=== PATIENT | male | born 1950 | race Caucasian/White ===

== ENCOUNTER 2020-07-23 08:59 | Emergency (ER) | payer MEDICARE, OTHER ==
[2020-07-23] MEDS ORDERED: Lactated Ringers 1,000 ML IV SCH (09:45)
[2020-07-23] MEDS ORDERED: Morphine 4 MG/ML Syringe IVPUSH ONE (09:45)
--- NOTE | 2020-07-23 09:51 | EDM.PDOC ---
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 The patient states that off and on for the past 5 years this right-sided inguinal hernia has come out and in. He states that he is normally able to reduce it. He states that starting yesterday he noticed that it was starting to get painful and so he tried to reduce it but it did not seem to work. He denies any nausea, vomiting, fever or chills. He denies any melena, diarrhea. He states that he does have some constipation which is not normal for him. He has had a prior appendectomy. He states that he did have a colonoscopy and EGD in 2019 and a stool sample sent last year all of which were normal. He describes his pain as sharp and constant rated 10 out of 10. He denies any aggravating or relieving factors. REVIEW OF SYSTEMS: Constitutional: Denies fever, chills. Eyes: Denies eye pain Ears, Nose, Mouth, & Throat: Denies earache Cardiovascular: Denies chest pain Respiratory: Denies shortness of breath Gastrointestinal: Positive for constipation denies Nausea, vomiting, diarrhea, hematochezia. Genitourinary: Positive for right-sided inguinal pain and hernia. Denies hematuria, dysuria, penile discharge Skin:Denies a rash MSK: Denies joint pain Neurological: Denies blurred vision Psychiatric: Denies depression PAST MEDICAL HISTORY: As per history of present illness and as reviewed below otherwise noncontributory. SURGICAL HISTORY: As per history of present illness and as reviewed below otherwise noncontributory. SOCIAL HISTORY: As per history of present illness and as reviewed below otherwise noncontributory. FAMILY HISTORY: As per history of present illness and as reviewed below otherwise noncontributory. EXAMINATION OF ORGAN SYSTEMS/BODY AREAS: Constitutional: Blood pressure is 163/60, heart rate 59, respiratory rate 16 with an oxygen saturation 98% on room air. Temperature 36.1 General: Overall well-appearing man who is in no acute distress Psychiatric: Appropriate mood and affect. Eyes: No scleral icterus or conjunctival erythema ENMT: Moist mucous membranes. No pharyngeal erythema Cardiovascular: Regular, rate, and rhythm. No gallops, murmurs, or rubs. Bilateral upper extremity pulses symmetric and intact. No peripheral edema. No JVD. Respiratory: Lungs clear to auscultation bilaterally. No wheezes, rales, or rhonchi. Gastrointestinal: Soft, non-tender, non-distended. Normoactive bowel sounds no rebound or guarding. Genitourinary: No suprapubic tenderness bilateral testicles are descended. No testicular pain or swelling. No transverse lie. Positive cremasteric reflex. There does appear to be a right direct inguinal hernia. This area is mildly tender to palpation. Musculoskeletal: Normal range of motion. Skin: No lesions or abrasions. Neurological: Alert, GCS 15 MEDICAL DECISION MAKING AND COURSE IN THE ED WITH INTERPRETATION/REVIEW OF DIAGNOSTIC STUDIES: This is a 69-year-old and with a past medical history of d iabetes mellitus and prior MRSA of the left lower extremity status post BKA who comes to the emergency department with right-sided what appears to be direct inguinal hernia with tenderness for approximately 24 hours. At this time I did try to reduce the hernia manually however it was difficult to find the hernia itself. There was not any significant tenderness at this time. However given the inability to reduce his hernia we will obtain a CT abdomen pelvis with contrast to further evaluate. Will obtain basic labs including CBC, CMP, and Covid. We will provide the patient with 1 L of lactated Ringer's bolus and 4 mg of IV morphine for pain relief. Laboratory: CBC is unremarkable. CMP reveals elevated BUN at 26 and creatinine of 1.7, hyperglycemia at 127 hypocalcemia 8.4 otherwise unremarkable. Covid is negative. The radiological images were viewed by myself along with reading the report from the radiologist. CT abdomen pelvis reveals moderate sized fat-containing right inguinal hernia, epiploic appendagitis involving a redundant sigmoid colon with an additional small area of mesenteric inflammatory change with right lower quadrant. There is colonic diverticulosis without diverticulitis there is an enlarged prostate. 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 Mild fatty infiltration of the liver and mild splenomegaly. On reevaluation the patient's pain had improved. I did discuss had like to speak with general surgery and orthopedics regarding his avascular necrosis. The patient states that he has been experiencing right hip pain and inability to cross his leg across his other leg for approximately 2 years now. He states that this was after a fall. There is no known history of avascular necrosis that he knows of. The patient is able to ambulate. I did contact Dr. Salmon who reviewed the images and stated the patient can follow-up outpatient if his pain had significantly improved. In addition she stated the patient should take NSAIDs for pain relief. In addition I did contact Dr. Mcginnis regarding the avascular necrosis and he recommended that he follow-up with his primary care physician and get a referral to a higher level institution given his history of MRSA and high risk replacement of his right hip. I did discuss my discussions with the consultants and the patient was amenable to this plan. He was given strict return precautions. The patient was amenable to discharge and had no further questions. DISPOSITION: The patient was discharged home in stable condition. The patient will follow up with primary care physician within 1 week and general surgery within 1 week CONDITION: Fair PROCEDURES: None FINAL IMPRESSION(S)/DIAGNOSES: 1. Acute right-sided fat-containing inguinal hernia 2. Acute mesenteric inflammation with appendagitis 3. Avascular necrosis of the right hip Uriah Mac M.D. abdomen Pain Score (Numeric/FACES): 5 - Related Data Allergies Allergy/AdvReac Type Severity Reaction Status Date / Time No Known Allergies Allergy Verified 07/23/20 09:23 Home Meds: Home Meds Ascorbic Acid [C Complex] 07/23/20 [History] Cholecalciferol (Vitamin D3) [D3-2000] 07/23/20 [History] Furosemide [Lasix] 20 mg PO DAILY 07/23/20 [History] Insulin Degludec [Tresiba] 07/23/20 [History] Insulin Lispro [HumaLOG] 07/23/20 [History] Omeprazole 07/23/20 [History] Psyllium Husk [Fiber] 07/23/20 [History] Zinc 07/23/20 [History] carvediloL [Coreg] 6.25 mg PO DAILY 07/23/20 [History] metFORMIN [Glucophage XR] 05/15/21 [History] Past Medical History - Infectious Disease History Infectious Disease History: Reports: MRSA - Past Surgical History Other Cardiovascular Surgeries/Procedures: HX: EF 20% at one time. GI Surgical History: Reports: Appendectomy Other Male Surgeries/Procedures: Patient states his kidneys were almost shut down, almost had to go on dialysis Other Musculoskeletal Surgeries/Procedures:: arm and leg surgeries Social & Family History - Tobacco Use Tobacco Use Status *Q: Never Tobacco User - Recreational Drug Use Recreational Drug Use: No ED ROS GENERAL - Review of Systems Review Of Systems: See Below ED EXAM, GENERAL - Physical Exam Exam: See Below Course - Vital Signs Last Recorded V/S: Last Vital Signs Temp 36.1 C 07/23/20 09:21 Pulse 60 07/23/20 12:58 Resp 16 07/23/20 12:58 BP 158/68 H 07/23/20 12:58 Pulse Ox 97 07/23/20 12:58 - Orders/Labs/Meds Labs: Laboratory Tests 07/23/20 07/23/20 07/23/20 Range/Units 10:04 10:04 10:11 WBC 8.68 (4.0-11.0) K/uL RBC 4.23 L (4.50-5.90) M/uL Hgb 13.1 (13.0-17.0) g/dL Hct 39.5 (38.0-50.0) % MCV 93.4 (80.0-98.0) fL MCH 31.0 (27.0-32.0) pg MCHC 33.2 (31.0-37.0) g/dL RDW Std Deviation 45.8 (28.0-62.0) fl RDW Coeff of Aleida 13 (11.0-15.0) % Plt Count 170 (150-400) K/uL MPV 11.00 (7.40-12.00) fL Neut % (Auto) 69.4 (48.0-80.0) % Lymph % (Auto) 14.9 L (16.0-40.0) % Rapides % (Auto) 11.5 (0.0-15.0) % Eos % (Auto) 3.9 (0.0-7.0) % Baso % (Auto) 0.3 (0.0-1.5) % Neut # (Auto) 6.0 H (1.4-5.7) K/uL Lymph # (Auto) 1.3 (0.6-2.4) K/uL Rapides # (Auto) 1.0 H (0.0-0.8) K/uL Eos # (Auto) 0.3 (0.0-0.7) K/uL Baso # (Auto) 0.0 (0.0-0.1) K/uL Nucleated RBC % 0.0 /100WBC Nucleated RBCs # 0 K/uL Sodium 139 (136-148) mmol/L Potassium 4.7 (3.5-5.1) mmol/L Chloride 104 (98-107) mmol/L Carbon Dioxide 25.1 (21.0-32.0) mmol/L BUN 26 H (7.0-18.0) mg/dL Creatinine 1.7 H (0.8-1.3) mg/dL Est Cr Clr Drug Dosing 47.65 mL/min Estimated GFR (MDRD) 40.4 ml/min Glucose 127 H (74-106) mg/dL Calcium 8.4 L (8.5-10.1) mg/dL Total Bilirubin 0.6 (0.2-1.0) mg/dL AST 23 (15-37) IU/L ALT 30 (14-63) IU/L Alkaline Phosphatase 95 (46-116) U/L Total Protein 7.8 (6.4-8.2) g/dL Albumin 3.8 (3.4-5.0) g/dL Globulin 4.0 (2.6-4.0) g/dL Albumin/Globulin Ratio 0.9 (0.9-1.6) SARS-CoV-2 RNA (GLENNY) NEGATIVE (NEGATIVE) Meds: Medications Discontinued Medications Generic Name Dose Route Start Last Admin Trade Name Freq PRN Reason Stop Dose Admin Lactated Ringer's 1,000 mls @ 999 mls/hr 07/23/20 09:45 07/23/20 10:08 Ringers, Lactated IV 999 mls/hr ASDIRECTED NELLA Administration Iopamidol 100 ml 07/23/20 11:08 07/23/20 11:09 Iopamidol 755 Mg/Ml 500 Ml Multipack Bottle IVPUSH 07/23/20 11:09 100 ml ONETIME ONE Administration Morphine Sulfate 4 mg 07/23/20 09:45 07/23/20 10:08 Morphine 4 Mg/Ml Syringe IVPUSH 07/23/20 09:46 Not Given ONETIME ONE Departure - Departure Time of Disposition: 12:39 Disposition: Home, Self-Care 01 Condition: Fair Clinical Impression: Hernia, AVN of femur - Discharge Information *PRESCRIPTION DRUG MONITORING PROGRAM REVIEWED*: No *COPY OF PRESCRIPTION DRUG MONITORING REPORT IN PATIENT SANTOS: No Instructions: Inguinal Hernia, Adult, [id number], Avascular Necrosis Referrals: Ben Gaspar MD [Primary Care Provider] - Forms: ED Department Discharge Additional Instructions: You were evaluated today on an emergent basis. At this time you do have a right inguinal hernia which does contain fat with some inflammation in the area and in your mesentery. There was no signs of infection or abscess and your labs all were within normal limits. I did speak with the general surgeon and she recommends follow-up in their clinic this next week. The numbers provided below. I would call on Saturday and make an appointment. In addition to this your CT scan did show avascular necrosis with advanced arthritis of your right hip. Given the duration of the symptoms he does not recommend any urgent surgery for this. The orthopedic surgeon would like you to follow-up with your primary care physician for a referral to orthopedics. He stated that at this time given that you have had MRSA in the past this would be a high risk hip replacement and he does recommend follow-up at a higher level of care such as [facility]. This discussion should be had with your primary care physician. Please take Motrin 400 mg every 6 hours for pain relief with food. You may alternate with Tylenol for additional pain relief 500 mg to 1000 mg every 6 hours. If you have any new or worsening symptoms such as worsening pain, fever, blood in stool please return to the emergency department. [facility] - General Surgery Professional Building [address] [facility], [address] [place] [address] [facility] - [facility] [address] [place] [address] [id number] [address] [address] The patient is informed of any results of their evaluation and diagnostic workup and all questions are answered. They are given discharge instructions and return precautions. The patient is stable for discharge. The patient states they understand and agree with the plan and that they will return if their symptoms get worse or if they have any new concerns. The following information is given to patients seen in the emergency department who are being discharged to home. This information is to outline your options for follow-up care. We provide all patients seen in our emergency department with a follow-up referral. The need for follow-up, as well as the timing and circumstances, are variable depending upon the specifics of your emergency department visit. If you don't have a primary care physician on staff, we will provide you with a referral. We always advise you to contact your personal physician following an emergency department visit to inform them of the circumstance of the visit and for follow-up with them and/or the need for any referrals to a consulting specialist. The emergency department will also refer you to a specialist when appropriate. This referral assures that you have the opportunity for follow-up care with a specialist. All of these measure are taken in an effort to provide you with optimal care, which includes your follow-up. Under all circumstances we always encourage you to contact your private physician who remains a resource for coordinating your care. When calling for follow-up care, please make the office aware that this follow-up is from your recent emergency room visit. If for any reason you are refused follow-up, please contact the [facility] Emergency Department at and asked to speak to the emergency department charge nurse. Sepsis Event Note (ED) - Evaluation Sepsis Screening Result: No Definite Risk
[2020-07-23 10:30] LABS: CARBON DIOXIDE,CO2 25.1 mmol/L (21.0-32.0); POTASSIUM,K 4.7 mmol/L (3.5-5.1)
[2020-07-23] MEDS ORDERED: Iopamidol 755 MG/ML 500 ML Multipack Bottle IVPUSH ONE (11:08)
--- NOTE | 2020-07-23 11:52 | CT ---
HISTORY: Incarcerated hernia. TECHNIQUE: Intravenous contrast enhanced CT of the abdomen and pelvis. 100 mL of Isovue-370 intravenous contrast administered. COMPARISON: No prior. FINDINGS: Sub cm low-density lesion within the dome of liver is too small to characterize. There is mild diffuse fatty infiltration of the liver. No biliary ductal dilatation. Gallbladder is not overly distended. Spleen size is mildly prominent measuring 13.5 cm. Adrenal glands are normal. No focal pancreatic abnormality. Symmetric nephrograms. No renal mass or hydronephrosis. The no obstructive urinary calculus. The prostate is enlarged and heterogeneous appearance. - No small bowel obstruction. The sigmoid colon is redundant. There is area of circumscribed fat with surrounding inflammatory change within the right anterior pelvis which likely reflects epiploic appendagitis of the sigmoid colon. There is an additional area of mild inflammatory change within the right lower quadrant mesentery. There is colonic diverticulosis without acute diverticulitis. No fluid collection or free air. - There is a moderate in size fat containing right inguinal hernia. No left sided inguinal hernia. - No abdominal aortic aneurysm. - Mild atelectasis or scarring within the lung bases. No pleural effusion or pneumothorax. - Degenerative changes of the spine. Degenerative changes of the sacroiliac joints. Advanced degenerative arthrosis of the right hip. 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 IMPRESSION: 1. Moderate in size fat containing right inguinal hernia. 2. Epiploic appendagitis involving a redundant sigmoid colon. Additional small area of mesenteric inflammatory change with right lower quadrant. 3. Colonic diverticulosis without acute diverticulitis. 4. Enlarged heterogeneous prostate. 5. Avascular necrosis of right femoral head with chronic flattening of the articular surface superiorly. Advanced degenerative arthrosis of the right hip. 6. Mild fatty infiltration of the liver. 7. Mild splenomegaly. Please note that all CT scans at this facility use dose modulation, iterative reconstruction, and/or weight-based dosing when appropriate to reduce radiation dose to as low as reasonably achievable. Dictated by Giuseppe Bajwa MD @ 07/23/2020 11:51:[address] Giuseppe Bajwa @ Jul 23 2020 11:51AM
== END 2020-07-23 12:59 | disposition home or self-care (01) ==
LOC: MW.ED 08:59
DX: K40.90 Unilateral inguinal hernia, without obstruction or gangrene, not specified as recurrent (principal); M87.9 Osteonecrosis, unspecified; K63.89 Other specified diseases of intestine; E11.9 Type 2 diabetes mellitus without complications; K21.9 Gastro-esophageal reflux disease without esophagitis; Z20.822 Contact with and (suspected) exposure to COVID-19; Z79.4 Long term (current) use of insulin; Z79.899 Other long term (current) drug therapy
CPT/HCPCS: 36415; 74177; 80053; 85025; 99284; J7120; Q9967; U0002